=== PATIENT | male | born 1985 | race Caucasian/White ===

== ENCOUNTER 2017-03-24 17:39 | Emergency (ER) | payer MEDICAID ==
[~2017-03-24] VITALS: Ht 175.3 cm; Wt 171.0 kg
[~2017-03-24 17:39] MED LIST: ACET325T33 PO; FAMO-18 PO; MECL25TA2 PO
[2017-03-24 18:12] VITALS: Ht 175.3 cm; Wt 171.0 kg
[2017-03-24] MEDS ORDERED: BENZ100C70 PO (19:10)
[2017-03-24] MEDS ORDERED: AZIT250T94 PO (19:10)
[2017-03-24] MEDS ORDERED: FAMO-18 PO (19:10)
--- NOTE | 2017-03-24 20:26 | ERD ---
ER Documentation Chief Complaint Date/Time DATE: 03/24/17 TIME: 20:10 Chief Complaint Encounter for medication refill, cough x 2 weeks HPI 31-year-old male patient with no significant past medical history presents to the ED complaining of a productive cough that has been going on for 2 weeks. States that he has been taking Robitussin without relief of his cough. Patient is also here for a medication refill. States that he takes famotidine for his gastritis. Denies any chest pain, shortness of breath, abdominal pain, wheezing , vomiting, diarrhea. Reports that his son is also sick with similar symptoms of cough. ROS All systems reviewed and are negative except as per history of present illness. Medications Home Meds Active Scripts Azithromycin* (Zithromax*) 250 Mg Tablet, 250 MG PO .DivinaPACK DIRECTED, #6 TAB TAKE 500 MG (2 TABS) THE FIRST DAY THEN 250 MG (1 TAB) DAYS 2-5 Prov:CHRISSY GILMORE PA-C 03/24/17 Benzonatate* (Tessalon Perle*) 100 Mg Capsule, 100 MG PO Q8H Y for COUGH, #20 CAP Prov:CHRISSY GILMORE PA-C 03/24/17 Famotidine* (Pepcid*) 20 Mg Tablet, 20 MG PO BID, #30 TAB Prov:CHRISSY GILMORE PA-C 03/24/17 Famotidine* (Pepcid*) 20 Mg Tablet, 20 MG PO BID for 4 Days, #30 TAB Prov:CHARLIE BILLY PA-C 06/13/16 Acetaminophen* (Tylenol*) 325 Mg Tablet, 2 TAB PO Q8 Y for PAIN AND OR ELEVATED TEMP, #20 TAB Prov:CHARLIE BILLY PA-C 06/06/16 Meclizine Hcl* (Antivert*) 25 Mg Tablet, 25 MG PO Q6H Y for HEADACHE, #20 TAB Prov:SYLWIA FERREIRA PA-C 04/11/15 Reported Medications [none] No Conflict Check 10/14/11 Allergies Allergies: Coded Allergies: Penicillins (Verified Allergy, Mild, 06/06/16) PMhx/Soc Medical and Surgical Hx: pt denies Medical Hx, pt denies Surgical Hx History of Surgery: No Anesthesia Reaction: No Hx Neurological Disorder: No Hx Respiratory Disorders: No Hx Cardiac Disorders: No Hx Psychiatric Problems: No Hx Miscellaneous Medical Probl: No Hx Alcohol Use: No Hx Substance Use: No Hx Tobacco Use: No Smoking Status: Never smoker Physical Exam Vitals Vital Signs Date Time Temp Pulse Resp B/P Pulse Ox O2 Delivery O2 Flow Rate FiO2 03/24/17 18:12 98.9 104 20 139/82 98 Physical Exam Const: [id number], well-nourished. In no acute distress. Head: Atraumatic, normocephalic Eyes: Normal Conjunctiva without injection. No purulent discharge. PERRL. EOMI ENT: Normal external ear. Ear canal without erythema. Tympanic membrane pearly navarrete without effusion or bulging. Nasal canal clear with normal turbinates. Moist oropharynx without tonsillar exudates. Non-erythematous pharynx. Uvula midline. No drooling. No trismus. Neck: Full range of motion. No meningismus. No cervical lymphadenopathy. Resp: Clear to auscultation bilaterally. No wheezing, rhonchi, rales, or crackles. No accessory muscle use. No retractions. Cardio: Regular rate and rhythm. No murmurs, rubs or gallops. Abd: Soft, non tender, non distended. Normal bowel sounds. No palpable masses. No rebound tenderness. No guarding. Skin: No petechiae or rashes Back: No midline tenderness. No CVA tenderness. Ext: No cyanosis, or edema. Neur: Awake and alert. Psych: Normal Mood and Affect Procedures/MDM This is a 31-year-old male patient with a past medical history of gastritis presents to the ED for a medication refill for his famotidine and a productive cough that has been going on for last 2 weeks. Patient is afebrile nontoxic appearing. Patient has normal vital signs. This patient presents to the ED with symptoms consistent with bronchitis. Patient is afebrile and has normal vital signs. Patient's physical exam include lungs which were clear to auscultation and a normal pulse oximetry. No indication for a chest x-ray at this time. There is a low suspicion for pneumonia, pneumothorax, mononucleosis , pulmonary embolism, epiglottitis, otitis media, otitis externa, viral/strep pharyngitis, sinusitis, peritonsillar abscess, mastoiditis, retropharyngeal abscess, meningitis, sepsis, acute abdomen or other emergent conditions. Fluids , rest, and symptomatic treatment are recommended for the management of patient' s symptoms. Discharge medications: Tessalon Perles, Azithromycin, Famotidine Patient was instructed to return to the ED for any new or worsening symptoms. They should otherwise follow up with the primary care provider within 1-2 days. The patient's questions were answered at the time of discharge. Patient understood and agreed with discharge management. Departure Diagnosis: Primary Impression: Encounter for medication refill Additional Impression: Cough Condition: Stable Patient Instructions: Taking Medicine Safely, Bronchitis, Antiobiotic Treatment (Adult), Gastritis (Adult) [facility] Usted se kraft hecho un examen mdico de control que le indica que no est en huma condicin que requiera tratamiento urgente en el Departamento de Emergencia. Un estudio ms profundo y el tratamiento de perez condicin pueden esperar sin ningn riesgo hasta que usted sea atendida/o en el consultorio de perez mdico o huma cl prashanth. Es responsabilidad suya arreglar huma betsey para el seguimiento del goldy. MANEJO DE CONDICIONES NO URGENTES EN EL FUTURO 1) Si usted tiene un mdico de atencin primaria: Usted debera llamar a perez mdico de atencin primaria antes de venir al departamento de emergencia. Despus de las horas de consultorio, perez doctor o perez asociado/a est disponible por telfono. El mdico o enfermero de alea en el servicio telefnico puede asesorarle por jose medio para atender el problema, o goldy contrario se puede programar huma betsey. 2) Si usted no tiene un mdico de atencin primaria: Llame al mdico o clnica de referencia que aparece abajo lisa las horas de consultorio para hacer huma betsey para que le vean. CLINICAS: [facility] [phone] [facility] [phone] [address] [place] [phone] [place] [phone] [facility] [phone] [facility] [phone] [facility] () Usted se kraft hecho un examen mdico de control que le indica que no est en huma condicin que requiera tratamiento urgente en el Departamento de Emergencia. Un estudio ms profundo y el tratamiento de perez condicin pueden esperar sin ningn riesgo hasta que usted sea atendida/o en el consultorio de perez mdico o huma cl prashanth. Es responsabilidad suya arreglar huma betsey para el seguimiento del goldy. MANEJO DE CONDICIONES NO URGENTES EN EL FUTURO 1) Si usted tiene un mdico de atencin primaria: Usted debera llamar a perez mdico de atencin primaria antes de venir al departamento de emergencia. Despus de las horas de consultorio, perez doctor o perez asociado/a est disponible por telfono. El mdico o enfermero de alea en el servicio telefnico puede asesorarle por jose medio para atender el problema, o goldy contrario se puede programar huma betsey. 2) Si usted no tiene un mdico de atencin primaria: Llame al mdico o condado institucions de referencia que aparece abajo lisa las horas de consultorio para hacer huma betsey para que le vean. SI USTED NO PUEDE PAGAR PARA FEDE UN MEDICO puede ir a: [facility] [address] [place] [address] [facility] [address] [place] [address] [facility] [address] [place] [address] [facility] [address] [place], [place] [id number] [facility] Additional Instructions: Llame al doctor MAANA y erica huma BETSEY PARA DENTRO DE 2-3 HAUSRE.Dgale a la secretaria que nosotros le instruimos hacer esta betsey.Avise o llame si perez condicin se empeora antes de la betsey. Regresa aqui si peor o no mejor. CHRISSY GILMORE PA-C Mar 24, 2017 20:24
== END 2017-03-24 19:50 | disposition home or self-care (01) ==
LOC: FTE 17:39
DX: R05 Cough (principal); Z76.0 Encounter for issue of repeat prescription
CPT/HCPCS: 99284